=== PATIENT | male | born 1950 | race Caucasian/White ===

== ENCOUNTER 2018-11-05 07:10 | Day surgery (SDC) | payer MEDICARE, BC ==
[2018-11-05] MEDS ORDERED: Dextrose 5%-Lactated Ringers 1,000 ML IV SCH (08:00)
[2018-11-05] MEDS ORDERED: Propofol 200 MG/20 ML SDV ONE (08:29)
[2018-11-05] MEDS ORDERED: fentaNYL 100 MCG/2 ML SDV ONE (08:29)
[2018-11-05] MEDS ORDERED: Midazolam 1 MG/ML 2 ML SDV ONE (08:29)
[2018-11-05] MEDS ORDERED: Glycopyrrolate 0.2 MG/ML 2 ML SDV IVPUSH ONE (08:45)
--- NOTE | 2018-11-11 14:04 | OR ---
DATE OF PROCEDURE: 11/05/2018 PREOPERATIVE DIAGNOSIS: Epigastric discomfort associated with history of peptic ulcer disease. POSTOPERATIVE DIAGNOSES: 1. Healing antral gastritis and proximal duodenitis. 2. Moderately enlarged esophageal varices suspicious for underlying liver disease. OPERATIVE PROCEDURES: Esophagogastroduodenoscopy with antral biopsies for CLOtest. ANESTHESIA: IV sedation. INDICATION FOR PROCEDURE: This is a 68-year-old presenting with some ongoing epigastric pain. The patient does have history of some peptic ulcer disease in the past. He was started on omeprazole 20 mg a day and has taken that for the last 2 weeks and states that his symptoms are quite a bit improved on that medication. The plan is to proceed with an upper GI endoscopy with biopsies as indicated. Potential risks including bleeding and perforation were discussed, and the patient wishes to proceed. DETAILS OF PROCEDURE: The patient was taken to the operating room and placed in a left lateral decubitus position. IV sedation was administered, after which the upper GI endoscope was passed orally through the length of the esophagus and into the stomach with retroflexion view of the fundus and thereafter through the pyloric channel, into the junction of the third and fourth portions of the duodenum. Findings included normal hypopharynx, larynx, upper esophageal sphincter, and in the lower two-thirds of the esophagus, the patient was noted to have some scattered moderately enlarged esophageal varices. This was not associated with significant esophagitis and minimal if any hiatal hernia was present. Within the stomach, there was some retained bile present. Proximal stomach was otherwise unremarkable. No distinct gastric varices were seen. Within the antrum, there were areas of the gastritis which were now covered with some scattered areas of fibrinous exudate consistent with some healing gastritis. Within the proximal duodenum, there were also patchy reddened areas, and in this case, no erosions or ulcers were seen, and beyond the duodenal bulb, the duodenal findings were unremarkable. At this point, biopsies were obtained from the antrum and sent for CLOtest for H. pylori. Minimal bleeding from the biopsy sites was seen, and the procedure then concluded. We will contact the patient should the CLOtest be positive. Otherwise, the patient will be following up with RE Arnold, in about 2 weeks for followup of the gastritis and duodenitis issues as well as evaluation of the esophageal varices and determination whether additional workup should be undertaken regarding some likely underlying liver disease and associated portal hypertension. Oleg Plaza MD /[id number]
== END 2018-11-05 11:19 | disposition home or self-care (01) ==
LOC: JP.SDS 07:10
PROVIDERS: ATTEND Surgery
DX: K29.70 Gastritis, unspecified, without bleeding (principal); K29.80 Duodenitis without bleeding; I85.00 Esophageal varices without bleeding; K44.9 Diaphragmatic hernia without obstruction or gangrene; Z87.891 Personal history of nicotine dependence; Z87.11 Personal history of peptic ulcer disease; Z79.899 Other long term (current) drug therapy
CPT/HCPCS: 43239; 87081; J2250; J2704; J3010; J3490; J7042

== ENCOUNTER 2019-02-25 07:32 | Emergency (ER) | payer MEDICARE, BC ==
--- NOTE | 2019-02-25 08:11 | EDM.PDOC ---
ED HPI GENERAL MEDICAL PROBLEM - General Chief Complaint: Lower Extremity Injury/Pain Stated Complaint: RIGHT LEG PAIN Time Seen by Provider: 02/25/19 07:45 Source of Information: Reports: Patient, Family History Limitations: Reports: No Limitations - History of Present Illness INITIAL COMMENTS - FREE TEXT/NARRATIVE: 68-year-old male with right hip pain off-and-on for the last several months, but the last 2-3 days it's been very intense and much worse in the mornings. This morning he had difficulty walking so came in. The pain is lateral, extends down the lateral aspect of the upper leg but not to the knee. No significant pain with weightbearing. He has no history of significant arthritis, no trauma, fever or chills, joint swelling or redness. No rash. Onset: Gradual Duration: Waxing/Waning (For several months) Location: Reports: Lower Extremity, Right Quality: Reports: Burning, Sharp Worsens with: Reports: Movement (Painful to walk) Associated Symptoms: Reports: No Other Symptoms Right Hip Pain Score (Numeric/FACES): 6 - Related Data Allergies Allergy/AdvReac Type Severity Reaction Status Date / Time No Known Allergies Allergy Verified 02/25/19 07:51 Home Meds: Home Meds Magnesium 200 mg PO DAILY 11/01/18 [History] Multivitamin with Minerals [Multiple Vitamin] 1 tab PO DAILY 11/01/18 [History] Omeprazole 20 mg PO DAILY 11/01/18 [History] diphenhydrAMINE [Benadryl] 25 mg PO ASDIRECTED PRN 11/01/18 [History] Aspirin 325 mg PO DAILY 02/25/19 [History] Carvedilol [Coreg] 3.125 mg PO BID 02/25/19 [History] Terbinafine HCl [Lamisil] 250 mg PO DAILY 02/25/19 [History] Past Medical History HEENT History: Reports: Impaired Vision Cardiovascular History: Reports: Afib, Arrhythmia, Hypertension Gastrointestinal History: Reports: GERD, Other (See Below) Other Gastrointestinal History: history of peptic ulcer Neurological History: Reports: Concussion - Infectious Disease History Infectious Disease History: Reports: Chicken Pox, Measles, Mumps - Past Surgical History GI Surgical History: Reports: Appendectomy, Colonoscopy Neurological Surgical History: Reports: None Social & Family History - Family History Family Medical History: Noncontributory - Caffeine Use Caffeine Use: Reports: Coffee - Recreational Drug Use Recreational Drug Use: No Review of Systems - Review of Systems Review Of Systems: See Below Constitutional: Denies: Fever Respiratory: Reports: No Symptoms Cardiovascular: Reports: No Symptoms Skin: Reports: No Symptoms. Denies: Rash Neurological: Denies: Paresthesia Psychiatric: Reports: No Symptoms ED EXAM, GENERAL - Physical Exam Exam: See Below Exam Limited By: No Limitations General Appearance: Alert, No Apparent Distress Respiratory/Chest: No Respiratory Distress Cardiovascular: Regular Rate, Rhythm Extremities: Other (No significant pain with internal or external rotation of the right hip passively. No pain with flexion or extension. On palpation is very tender over the greater trochanteric bursa, especially anteriorly) Neurological: Alert, Oriented, No Motor/Sensory Deficits Psychiatric: Normal Mood Skin Exam: Warm, Dry Course - Vital Signs Last Recorded V/S: Last Vital Signs Temp 97.3 F 02/25/19 07:44 Pulse 60 02/25/19 07:44 Resp 16 02/25/19 07:44 BP 152/83 H 02/25/19 07:44 Pulse Ox 96 02/25/19 07:44 - Orders/Labs/Meds Meds: Medications Discontinued Medications Generic Name Dose Route Start Last Admin Trade Name Freq PRN Reason Stop Dose Admin Triamcinolone Acetonide 40 mg/ 0 mg 02/25/19 08:30 02/25/19 08:21 Bupivacaine HCl 9 ml .XX 02/25/19 08:31 1 each ONETIME ONE Administration - Re-Assessments/Exams Free Text/Narrative Re-Assessment/Exam: 02/25/19 08:11 The area of the greater trochanter was sterilized with Betadine, marked, and 40 mg of Kenalog with 9 mL of 0.5% Marcaine was infiltrated into the area under sterile conditions. 02/25/19 08:18 After the medication was infiltrated into the greater trochanteric area, his pain resolved. He was warned of the window where his pain may recur, and that he can increase activity as tolerated. Twice daily dose of Aleve for the next several days may be beneficial. Recheck with orthopedics next week if not improving satisfactorily. Departure - Departure Time of Disposition: 08:24 Disposition: Home, Self-Care 01 Clinical Impression: Greater trochanteric bursitis of right hip - Discharge Information Instructions: Trochanteric Bursitis Referrals: Marcus Mccrary NP [Primary Care Provider] - Forms: ED Department Discharge Care Plan Goals: Twice daily Aleve for the next 3-5 days would be beneficial, increase activity as tolerated and recheck next week if pain recurs.
[2019-02-25] MEDS: BUPIVACAINE 0.5% ONE ×4 (08:20→08:21)
[2019-02-25] MEDS: TRIAMCINOLONE ACETONIDE 40 MG ONE ×4 (08:20→08:21)
== END 2019-02-25 08:24 | disposition home or self-care (01) ==
LOC: JP.ED 07:32
DX: M70.61 Trochanteric bursitis, right hip (principal); I48.91 Unspecified atrial fibrillation; I10 Essential (primary) hypertension; K21.9 Gastro-esophageal reflux disease without esophagitis; Z79.82 Long term (current) use of aspirin; Z79.899 Other long term (current) drug therapy
CPT/HCPCS: 20610; 99282; J3301

== ENCOUNTER 2022-09-16 12:32 | Emergency (ER) | payer MEDICARE ==
[2022-09-16 13:58] LABS: BASOPHILS ABSOLUTE AUTO 0.04 K/uL (0.00-0.10); BASOPHILS PERCENT AUTO 0.8 % (0.1-1.3); EOSINOPHILS ABSOLUTE AUTO 0.06 K/uL (0.00-0.40); EOSINOPHILS PERCENT AUTO 1.2 % (0.0-5.4); HEMATOCRIT 39.2 % (38.4-49.7); HEMOGLOBIN 13.3 g/dL (12.9-16.9); IMMATURE GRAN PERCENT AUTO 0.4 % (0.0-0.7); LYMPHOCYTES ABSOLUTE AUTO 1.28 K/uL (0.8-3.3); LYMPHOCYTES PERCENT AUTO 24.6 % (11.4-47.7); MEAN CORPUSCULAR HEMOGLOBIN 32.3 pg (31.6-35.5); MEAN CORPUSCULAR HGB CONC 33.9 g/dL (31.6-35.5); MEAN CORPUSCULAR VOLUME 95.1 fL (81.4-99.0); MONOCYTES ABSOLUTE AUTO 0.59 K/uL (0.20-0.90); MONOCYTES PERCENT AUTO 11.3 % (3.3-12.6); NEUTROPHILS ABSOLUTE AUTO 3.22 K/uL (1.0-7.6); NEUTROPHILS PERCENT AUTO 61.7 % (40.0-78.1); PLATELET COUNT,PLT 188 K/uL (130-375); RED BLOOD CELL COUNT 4.12 M/uL (4.14-5.76); WHITE BLOOD CELL COUNT,WBC 5.2 K/uL (3.2-11.0)
[2022-09-16 14:00] LABS: IMMATURE GRAN ABSOLUTE AUTO 0.02 K/uL (0.00-0.23)
[2022-09-16 14:14] LABS: CALCIUM 8.6 mg/dL (8.5-10.1); CREATININE 0.8 mg/dL (0.8-1.3); EST CRCL DRUG DOSING (CG) 79.56 mL/min; POTASSIUM,K 4.2 mmol/L (3.6-5.2)
[2022-09-16 14:15] LABS: ANION GAP 11.2 mmol/L (5.0-14.0)
[2022-09-16] MEDS ORDERED: Iopamidol 755 Mg/ML 100 ML Bottle IV SCH (15:45)
[2022-09-16] MEDS ORDERED: Sodium Chloride 0.9% 100 ML IV SCH (15:45)
== END 2022-09-16 17:48 | disposition home or self-care (01) ==
LOC: JP.ED 12:32
DX: J98.11 Atelectasis (principal); I48.91 Unspecified atrial fibrillation; I10 Essential (primary) hypertension; K21.9 Gastro-esophageal reflux disease without esophagitis; Z79.899 Other long term (current) drug therapy
CPT/HCPCS: 36415; 71101; 71275; 80048; 85025; 85379; 99284; J3490; Q9967

== ENCOUNTER 2024-06-26 07:12 | Day surgery (SDC) | payer MEDICARE ==
[2024-06-26] MEDS ORDERED: Propofol 200 MG/20 ML SDV ONE (07:20)
[2024-06-26] MEDS ORDERED: fentaNYL 50 MCG/ML SDV ONE (07:20)
[2024-06-26] MEDS: Lactated Ringers 1,000 ML IV SCH (08:07)
== END 2024-06-26 10:45 | disposition home or self-care (01) ==
LOC: JP.SDS 07:12
PROVIDERS: ATTEND Surgery
DX: Z12.11 Encounter for screening for malignant neoplasm of colon (principal); D12.4 Benign neoplasm of descending colon; D12.6 Benign neoplasm of colon, unspecified; I10 Essential (primary) hypertension
CPT/HCPCS: 45385; 45390; 88305; J2704; J3010; J7120; 00811-QZ

== ENCOUNTER 2024-10-12 18:21 | Emergency (ER) | payer MEDICARE ==
[2024-10-12 20:35] LABS: BASOPHILS ABSOLUTE AUTO 0.05 K/uL (0.00-0.10); BASOPHILS PERCENT AUTO 0.9 % (0.1-1.3); EOSINOPHILS ABSOLUTE AUTO 0.07 K/uL (0.00-0.40); EOSINOPHILS PERCENT AUTO 1.3 % (0.0-5.4); IMMATURE GRAN PERCENT AUTO 0.2 % (0.0-0.7); LYMPHOCYTES ABSOLUTE AUTO 1.72 K/uL (0.8-3.3); LYMPHOCYTES PERCENT AUTO 31.9 % (11.4-47.7); MONOCYTES ABSOLUTE AUTO 0.48 K/uL (0.20-0.90); MONOCYTES PERCENT AUTO 8.9 % (3.3-12.6); NEUTROPHILS ABSOLUTE AUTO 3.07 K/uL (1.0-7.6); NEUTROPHILS PERCENT AUTO 56.8 % (40.0-78.1); PLATELET COUNT,PLT 154 K/uL (130-375); RED BLOOD CELL COUNT 3.76 M/uL (4.14-5.76); WHITE BLOOD CELL COUNT,WBC 5.4 K/uL (3.2-11.0)
[2024-10-12 20:37] LABS: IMMATURE GRAN ABSOLUTE AUTO 0.01 K/uL (0.00-0.23)
== END 2024-10-12 21:40 | disposition home or self-care (01) ==
LOC: JP.ED 18:21
DX: S80.212A Abrasion, left knee, initial encounter (principal); S80.211A Abrasion, right knee, initial encounter; I10 Essential (primary) hypertension; Z79.82 Long term (current) use of aspirin; Z79.899 Other long term (current) drug therapy; Z90.49 Acquired absence of other specified parts of digestive tract; W19.XXXA Unspecified fall, initial encounter
CPT/HCPCS: 36415; 70450; 72125; 735622650; 73562-50; 76377; 85025; 99284

== ENCOUNTER 2025-01-09 06:19 | Day surgery (SDC) | payer MEDICARE ==
[2025-01-09] MEDS: Lactated Ringers 1,000 ML IV SCH (06:59)
[2025-01-09] MEDS ORDERED: Propofol 200 MG/20 ML SDV ONE (07:13)
[2025-01-09] MEDS ORDERED: fentaNYL 50 MCG/ML SDV ONE (07:13)
== END 2025-01-09 09:42 | disposition home or self-care (01) ==
LOC: JP.SDS 06:19
PROVIDERS: ATTEND Surgery
DX: D12.2 Benign neoplasm of ascending colon (principal); Z86.0100 Personal history of colon polyps, unspecified
CPT/HCPCS: 00811; 45385; 45390; J2704; J3010; J7120; 88305